=== PATIENT | female | born 1975 | race Two or more races ===

== ENCOUNTER → 2021-11-05 | Outpatient (CLI) | payer BC ==
[2021-11-05 12:12] LABS: CHLORIDE 106 mEq/L (98-107)
[2021-11-05 12:26] LABS: B-HCG QUANTITATIVE < 1 mIU/mL (<3)
[2021-11-06 05:09] LABS: HIV SCREEN 4G Non Reactive (Non Reactive)
== END | disposition home or self-care (01) ==
LOC: LAB 10:53
PROVIDERS: ATTEND Obstetrics & Gynecology Obstetrics
DX: Z13.1 Encounter for screening for diabetes mellitus (principal); Z11.8 Encounter for screening for other infectious and parasitic diseases; Z13.220 Encounter for screening for lipoid disorders; N30.20 Other chronic cystitis without hematuria
CPT/HCPCS: 36415; 80053; 82951; 83036; 84443; 84702; 86592; 86695; 86696; 86780; 87077; 87389

== ENCOUNTER → 2021-12-05 | Outpatient (CLI) | payer BC | END | disposition home or self-care (01) | LOC: MAMMO 08:09 | PROVIDERS: ATTEND Obstetrics & Gynecology Obstetrics | DX: Z12.31 Encounter for screening mammogram for malignant neoplasm of breast (principal); N63.20 Unspecified lump in the left breast, unspecified quadrant | CPT/HCPCS: 77067 ==

== ENCOUNTER → 2022-02-17 | Outpatient (CLI) | payer BC | END | disposition home or self-care (01) | LOC: US 08:54 | PROVIDERS: ATTEND Obstetrics & Gynecology Obstetrics | DX: D25.9 Leiomyoma of uterus, unspecified (principal); N83.201 Unspecified ovarian cyst, right side; K76.0 Fatty (change of) liver, not elsewhere classified; R16.0 Hepatomegaly, not elsewhere classified; K80.20 Calculus of gallbladder without cholecystitis without obstruction; N63.24 Unspecified lump in the left breast, lower inner quadrant | CPT/HCPCS: 76642; 76700; 76830; 76856 ==

== ENCOUNTER → 2022-04-16 | Day surgery (SDC) | payer BC ==
[~2022-04-16] VITALS: Ht 170.2 cm; Wt 97.5 kg
[~2022-04-16] MED LIST: ACETAMINOPHEN 650MG SUPP PR PRN; BUTORPHANOL TARTRATE 2 MG/ML VIAL IV PRN; CITA10TA88 PO; DIPH25CA83 PO; DIPHENHYDRAMINE 50MG/ML VIAL IV PRN; FENTANYL CITRATE/PF 50MCG/ML 2ML VIAL ONE; GARL200T PO; IBUP-1653 PO; KETOROLAC 30MG/ML VIAL IV PRN; LABETALOL 5MG/ML SYR 20 MG/4 ML SYRINGE IV PRN; LOSA50TA41 PO; MEPERIDINE HCL/PF 25MG/ML CPJ IV PRN; MIDAZOLAM HCL 2 MG/2 ML VIAL ONE; ONDANSETRON HCL 4MG/2ML INJ IV PRN; PROPOFOL 200MG/20ML VIAL IV ONE; VASOPRESSIN 20 UNIT/ML 1ML ONE
[2022-04-16 07:19] LABS: BASOPHILS % 0.8 % (0.0-2.0); HEMATOCRIT. 32.8 % (36.0-48.0); HEMOGLOBIN. 10.3 g/dL (12.0-16.0); LYMPHOCYTES % 24.8 % (20.0-50.0); MEAN CORPUSCULAR HEMOGLOBIN 21.6 pg (28.0-32.0); MEAN CORPUSCULAR VOLUME 68.6 fL (81.0-99.0); MEAN PLATELET VOLUME 8.8 fl (7.4-10.4); MONOCYTES % 6.9 % (2.0-8.0); NEUTROPHILS % 63.5 % (40.0-76.0); PLATELET 334 x1000/uL (130-400); RED BLOOD CELL COUNT 4.78 mill/uL (4.2-5.4); RED CELL DISTRIBUTION WIDTH 17.7 % (11.6-14.6)
[2022-04-16 07:24] LABS: CHLORIDE 109 mEq/L (98-107)
[2022-04-16 07:53] LABS: PROTHROMBIN TIME 10.8 sec (9.6-11.0)
[2022-04-16 08:08] LABS: CLARITY URINE CLEAR (CLEAR); COLOR URINE YELLOW (YELLOW); KETONES URINE NEGATIVE (NEGATIVE); LEUKOCYTE ESTERASE URINE NEGATIVE (NEGATIVE); NITRITE URINE NEGATIVE (NEGATIVE); OCCULT BLOOD URINE NEGATIVE (NEGATIVE); PROTEIN URINE NEGATIVE (NEGATIVE); UROBILINOGEN URINE 0.2 E.U./dL (0.2-1.0)
[2022-04-16 08:09] LABS: UCG SCREEN NEGATIVE
[2022-04-16 08:21] LABS: PARTIAL THROMBOPLASTIN TIME 26.6 sec (23.4-31.0)
[2022-04-16 08:27] LABS: PLATELET ESTIMATE NORMAL
[2022-04-16] MEDS: HYDROMORPHONE HCL/PF 2MG/ML CPJ IV PRN ×6 (10:13→10:49)
[2022-04-16 10:49] VITALS: BP 136/87
== END | disposition home or self-care (01) ==
LOC: OR 07:16 → EEVIPCON 08:30
PROVIDERS: ATTEND Obstetrics & Gynecology Obstetrics
DX: D25.0 Submucous leiomyoma of uterus (principal); I10 Essential (primary) hypertension; F41.9 Anxiety disorder, unspecified; D64.9 Anemia, unspecified; Z79.899 Other long term (current) drug therapy; Z98.890 Other specified postprocedural states; Z20.822 Contact with and (suspected) exposure to COVID-19; Z79.01 Long term (current) use of anticoagulants
CPT/HCPCS: 36415; 58561; 80048; 81003; 81025; 85025; 85610; 85730; 87426; 88305; C9803; J1170; J1885; J2250; J2405; J2704; J3010; J3490; J7120

== ENCOUNTER → 2022-09-09 | Outpatient (CLI) | payer BC ==
[~2022-09-09] MED LIST changes: -ACETAMINOPHEN 650MG SUPP PR PRN; -BUTORPHANOL TARTRATE 2 MG/ML VIAL IV PRN; -DIPHENHYDRAMINE 50MG/ML VIAL IV PRN; -FENTANYL CITRATE/PF 50MCG/ML 2ML VIAL ONE; -KETOROLAC 30MG/ML VIAL IV PRN; -LABETALOL 5MG/ML SYR 20 MG/4 ML SYRINGE IV PRN; -MEPERIDINE HCL/PF 25MG/ML CPJ IV PRN; -MIDAZOLAM HCL 2 MG/2 ML VIAL ONE; -ONDANSETRON HCL 4MG/2ML INJ IV PRN; -PROPOFOL 200MG/20ML VIAL IV ONE; -VASOPRESSIN 20 UNIT/ML 1ML ONE
[2022-09-09 15:36] LABS: EOSINOPHILS % 8.4 % (0.0-5.0); HEMATOCRIT. 29.4 % (36.0-48.0); HEMOGLOBIN. 8.7 g/dL (12.0-16.0); MEAN CORPUSCULAR HEMOGLOBIN 18.7 pg (28.0-32.0); MEAN CORPUSCULAR VOLUME 62.7 fL (81.0-99.0); MEAN PLATELET VOLUME 8.8 fl (7.4-10.4); MONOCYTES % 9.1 % (2.0-8.0); NEUTROPHILS % 56.5 % (40.0-76.0); PLATELET 367 x1000/uL (130-400); RED BLOOD CELL COUNT 4.68 mill/uL (4.2-5.4); RED CELL DISTRIBUTION WIDTH 20.4 % (11.6-14.6)
[2022-09-09 15:43] LABS: CHLORIDE 107 mEq/L (98-107)
[2022-09-09 15:58] LABS: HDL CHOLESTEROL 35 mg/dL (40-59); LDL CHOLESTEROL 94 mg/dL (5-100); T4 FREE 1.09 ng/dL (0.76-1.46)
[2022-09-09 16:11] LABS: VITAMIN B12 SERUM 717 pg/mL (211-911)
[2022-09-09 16:59] LABS: PLATELET ESTIMATE NORMAL
[2022-09-12 08:08] LABS: VITAMIN D 25-OH 28.9 ng/mL (30.0-100.0)
== END | disposition home or self-care (01) ==
LOC: LAB 14:22
PROVIDERS: ATTEND Pediatrics
DX: Z00.00 Encounter for general adult medical examination without abnormal findings (principal)
CPT/HCPCS: 36415; 80053; 80061; 82306; 82607; 83036; 84439; 84443; 84481; 85025; 86376

== ENCOUNTER → 2023-05-14 | Outpatient (CLI) | payer BC | END | disposition home or self-care (01) | LOC: US 15:51 | PROVIDERS: ATTEND Obstetrics & Gynecology Obstetrics | DX: D25.9 Leiomyoma of uterus, unspecified (principal); N83.201 Unspecified ovarian cyst, right side | CPT/HCPCS: 76830; 76856 ==

== ENCOUNTER → 2024-08-16 | Outpatient (CLI) | payer BC | END | disposition home or self-care (01) | LOC: US 09:24 | PROVIDERS: ATTEND Obstetrics & Gynecology Obstetrics | DX: D25.2 Subserosal leiomyoma of uterus (principal); K80.20 Calculus of gallbladder without cholecystitis without obstruction; K76.0 Fatty (change of) liver, not elsewhere classified; R16.0 Hepatomegaly, not elsewhere classified | CPT/HCPCS: 76700; 76830; 76856 ==

== ENCOUNTER → 2024-11-18 | Outpatient (CLI) | payer BC ==
[2024-11-18 14:05] LABS: EOSINOPHILS % 5.3 % (0.0-5.0); HEMATOCRIT. 32.1 % (36.0-48.0); HEMOGLOBIN. 9.7 g/dL (12.0-16.0); LYMPHOCYTES % 26.9 % (20.0-50.0); MEAN CORPUSCULAR HEMOGLOBIN 18.9 pg (28.0-32.0); MEAN CORPUSCULAR HGB CONC 30.2 g/dL (31.0-37.0); MEAN CORPUSCULAR VOLUME 62.7 fL (81.0-99.0); MEAN PLATELET VOLUME 8.7 fl (7.4-10.4); NEUTROPHILS % 54.8 % (40.0-76.0); PLATELET 364 x1000/uL (130-400); RED BLOOD CELL COUNT 5.12 mill/uL (4.2-5.4); RED CELL DISTRIBUTION WIDTH 22.1 % (11.6-14.6); WHITE BLOOD COUNT 10.1 x1000/uL (4.5-11.0)
[2024-11-18 14:09] LABS: ADD RBC MORPHOLOGY YES; DIFFERENTIAL COMMENT 1
[2024-11-18 14:15] LABS: CHLORIDE 105 mEq/L (98-107); POTASSIUM 3.6 mEq/L (3.5-5.1); SODIUM 138 mEq/L (136-145)
[2024-11-18 14:16] LABS: CARBON DIOXIDE 23 mEq/L (21-32)
[2024-11-18 14:21] LABS: CREATININE 0.7 mg/dL (0.6-1.0); GLUCOSE 103 mg/dL (70-105); UREA NITROGEN BLOOD 14 mg/dL (9-23)
[2024-11-18 14:23] LABS: ALANINE AMINOTRANSFERASE 27 IU/L (10-49); ALBUMIN 4.4 g/dL (3.2-4.8); ASPARTATE AMINOTRANSFERASE 19 IU/L (<34); BILIRUBIN TOTAL 0.3 mg/dL (0.1-1.0); PROTEIN TOTAL 7.4 g/dL (6.0-8.3)
[2024-11-18 14:34] LABS: HYPOCHROMASIA 1+; PLATELET ESTIMATE NORMAL
[2024-11-18 14:35] LABS: ANISOCYTOSIS 3+; MICROCYTOSIS 3+
[2024-11-18 14:39] LABS: BILIRUBIN DIRECT < 0.1 mg/dL (<=3.0)
== END | disposition home or self-care (01) ==
LOC: LAB 13:31
PROVIDERS: ATTEND Obstetrics & Gynecology Obstetrics
DX: Z13.1 Encounter for screening for diabetes mellitus (principal); Z13.228 Encounter for screening for other metabolic disorders; Z13.0 Encounter for screening for diseases of the blood and blood-forming organs and certain disorders involving the immune mechanism; R94.5 Abnormal results of liver function studies
CPT/HCPCS: 36415; 80053; 80076; 83036; 85025